=== PATIENT | male | born 1985 | race Caucasian/White ===

== ENCOUNTER 2022-02-02 11:55 | Emergency (ER) | payer BC ==
[~2022-02-02] VITALS: Ht 190.5 cm; Wt 107.0 kg
[2022-02-02] MEDS ORDERED: MORPHINE SULFATE 2 MG/1 ML DISP.SYRIN IV ONE (12:00)
[2022-02-02] MEDS ORDERED: ONDANSETRON 4 MG/2 ML VIAL IV ONE (12:00)
[2022-02-02] MEDS ORDERED: IV NORMAL SALINE 1000 ML BAG IV ONE (12:00)
--- NOTE | 2022-02-02 12:00 | NUR ---
Pt ambulatory to room 2B, states left shoulder pain/dislocation. Pt states hx of left shoulder dislocation, last time was about 8yrs ago. at bedside.
[2022-02-02] MEDS ORDERED: ONDANSETRON 4 MG/2 ML VIAL ONE ×2 (12:04)
[2022-02-02] MEDS ORDERED: MORPHINE SULFATE 2 MG/1 ML DISP.SYRIN ONE (12:04)
[2022-02-02] MEDS ORDERED: PROPOFOL 200 MG/20 ML BOTTLE IV ONE (12:15)
[2022-02-02] MEDS ORDERED: PROPOFOL 200 MG/20 ML BOTTLE ONE (12:27)
--- NOTE | 2022-02-02 13:37 | NUR ---
Patient presents to the ER, C/O (LT) Shoulder dislocation with pain and nausea. Patient shoulder appears to be out off alignment, with limited ROM and painful with movemnet. Patient A/O X 4, seen by the MD #[id number] angio-cath to (RT) hand, medicated as per MD orders (see eMAR). Patient placed on the cardiac catheterization technologist, sinus bradycardia and elevated blood pressure observed. X-Ray ordered and completed at the bedside. Consent for Moderate sedation completed asnd signed with all required signatures. Pre-procedure site form started. All member of the team at beside prior to start of procedure. Patient place on O2 @ 2LPM by RT. Patient medicated as per MD orders (see eMAR), shoulder reduced and (LT) shoulder sling in place. Patient regained orientation, supplemental oxygen discontinued and patient return to preprocedure saturation. Repeat X-ray completed at the bedside. patient is stable on the stretcher in the lowest position, call rosado within reach and awaiting disposition.
[2022-02-02] MEDS ORDERED: HYDR-4209 PO (14:03)
[2022-02-02] MEDS ORDERED: IBUP800T54 PO (14:03)
--- NOTE | 2022-02-02 14:08 | NUR ---
Patient seen and cleared for discharge home Angio-cath removed, site WNL and dry protective/pressure dressing in place. Discharge instructions provided. Patient is stable, left ambulatory.
== END 2022-02-02 14:28 | disposition home or self-care (01) ==
LOC: ER 11:55
DX: S43.005A Unspecified dislocation of left shoulder joint, initial encounter (principal); W18.39XA Other fall on same level, initial encounter; Y92.039 Unspecified place in apartment as the place of occurrence of the external cause
CPT/HCPCS: 99285; 23650; 96374; 96375; 73020 ×2; 99152; J2405 ×2; J2270; J7040; A4663; G0500; J3490